=== PATIENT | female | born 1980 | race Caucasian/White ===

== ENCOUNTER 2022-09-06 13:04 | Emergency (ER) | payer OTHER ==
[2022-09-06 13:12] VITALS: BP 121/79
[2022-09-06] MEDS ORDERED: oxyCODONE 5 MG TABLET PO STA (13:25)
--- NOTE | 2022-09-06 13:29 | ED Physician Documentation ---
PD HPI BACK PAIN - Stated complaint Stated Complaint: FALL,BACK PX - Chief complaint Chief Complaint: Trauma Ch/Bk - History obtained from History obtained from: Patient, Family - History of Present Illness Timing - onset: How many hours ago (1.5) Timing - details: Gradual onset Pain level max: 8 Pain level now: 7 Location: Lower, Left Quality: Pain, Spasm Associated symptoms: No: Fever, Weakness, Numbness, Incontinent of urine, Unable to urinate, Hematuria, Incontinent of stool Improves with: Rest, Meds (600mg motrin) Worsened by: Movement - Additional information Additional information: patient slipped this morning and fell on the stairs. She is complaining of left low back/flank pain. Took 600 mg of ibuprofen without relief. No loss of bowel or bladder control. No head or neck pain. No loss of consciousness. Worse with movement, better with rest. No IV drug use. No fevers. Review of Systems Constitutional: denies: Fever, Chills Cardiac: denies: Chest pain / pressure Respiratory: denies: Cough GI: denies: Abdominal Pain, Vomiting, Diarrhea : denies: Dysuria, Frequency, Hesitancy, Now EGA Skin: denies: Rash Musculoskeletal: denies: Neck pain Neurologic: denies: Focal weakness, Numbness, Headache PD PAST MEDICAL HISTORY - Past Medical History Past Medical History: No - Past Surgical History Past Surgical History: No - Present Medications Home Medications: Ambulatory Orders Medication Instructions Recorded Confirmed Oxycodone HCl/Acetaminophen 1 - 2 each PO Q6H PRN #14 tablet 09/06/22 [Percocet 5-325 mg Tablet] - Allergies Allergies/Adverse Reactions: Allergies Allergy/AdvReac Type Severity Reaction Status Date / Time No Known Drug Allergies Allergy Verified 09/06/22 13:09 - Living Situation Living Situation: reports: With family Living Arrangement: reports: At home - Social History Does the pt smoke?: No Does the pt have substance abuse?: No - Family History Family history: reports: Non contributory PD ED PE NORMAL - Vitals Vital signs reviewed: Yes - General General: Alert and oriented X 3, No acute distress, Well developed/nourished - HEENT HEENT: Moist mucous membranes - Neck Neck: Supple, no meningeal sign - Cardiac Cardiac: RRR, Strong equal pulses - Respiratory Respiratory: No respiratory distress, Clear bilaterally - Abdomen Abdomen: Soft, Non tender, Non distended - Back Back: No spinal TTP (No midline tenderness to palpation or percussion. No step- off or deformity. Mild tenderness in the left flank area. No visible bruising.) - Derm Derm: Warm and dry - Extremities Extremities: No edema, No calf tenderness / cord - Neuro Neuro: Alert and oriented X 3, No motor deficit, No sensory deficit, Other (Normal bilateral lower extremity patellar and ankle jerk reflexes. Normal great toe extension bilaterally. no saddle anesthesia) - Psych Psych: Normal mood, Normal affect Results - Vitals Vitals: Vital Signs - 24 hr 09/06/22 13:09 Temperature 37.2 C Heart Rate 95 Respiratory 18 Rate Blood Pressure 121/79 O2 Saturation 99 Oxygen O2 Source Room air PD MEDICAL DECISION MAKING - ED course Complexity details: re-evaluated patient, considered differential (No cauda equina, no spinal epidural abscess, no fracture, no aortic dissection or evidenc e of aneursym rupture), d/w patient ED course: No indication for x-rays. Pain feels much better after pain medication. Ambulating well. No neurological deficits. No evidence of cauda equina, epidural abscess. We will continue supportive care and have her follow-up with her doctor. Appears to be a contusion. Abdomen is soft, nontender nondistended on serial exam. No gross hematuria. Patient counseled regarding signs and symptoms for which I believe and urgent re-evaluation would be necessary. Patient with good understanding of and agreement to plan and is comfortable going home at this time This document was made in part using voice recognition software. While efforts are made to proofread this document, sound alike and grammatical errors may occur. Departure - Departure Disposition: 01 Home, Self Care Clinical Impression: Contusion, back Qualifiers: Encounter type: initial encounter Laterality: left Qualified Code(s): S20.222A - Contusion of left back wall of thorax, initial encounter Condition: Good Instructions: ED Contusion Back, ED Neck Back Pain General Follow-Up: Kamryn Pardo PA-C [Primary Care Provider] - Within 1 week Prescriptions: Oxycodone HCl/Acetaminophen [Percocet 5-325 mg Tablet] 1 - 2 each PO Q6H PRN #14 tablet PRN Reason: pain Comments: Please follow-up with your doctor for further care. Please return if you worsen. You can use the medication as needed for breakthrough pain. Continue to gently stretch the area. You will be sore over the next several days. You may see bruising that develops over the next few days as well. Please return for worsening pain, vomiting or other new or worrisome symptoms. Your prescription was sent to [facility] in [place]. I am prescribing a short course of narcotic pain medication for you. These are potentially dangerous and addictive medications that should be used carefully. These medications may constipate you. Take an [id number]-rtywrdd stool softener (docusate) twice daily with plenty of water while taking these medications. If you go 24 hours without a bowel movement, take [id number] miralax, per package instructions. Do not drink or drive while taking these medications. If you received narcotic or sedating medications while in the emergency department, do not drive for 24 hours. Store this medication in a safe, secure place and out of reach of children. It is a violation of federal law to give or sell this medication to another person or to use in a manner other than prescribed. The ED will not refill narcotic prescriptions, including prescriptions lost or stolen. To dispose of unwanted medications: 1. [facility] [address] in [place] has a medication drop box. They accept prescription medications (in pill form) Thursday through Thursday 9:00 a.m. to 5:00 p.m. 2. [facility] accepts prescription medications (in pill form only) for disposal year round. Call for more information. 3. Contact the [facility] for the next [employer] sponsored prescription drug collection event. , [phone], or [phone]; Discharge Date/Time: 09/06/22 14:20
== END 2022-09-06 14:20 | disposition home or self-care (01) ==
LOC: ED 13:04
DX: S20.222A Contusion of left back wall of thorax, initial encounter (principal); W10.9XXA Fall (on) (from) unspecified stairs and steps, initial encounter
CPT/HCPCS: 99282; A9270